=== PATIENT | female | born 1970 | race Caucasian/White ===

== ENCOUNTER 2018-08-25 16:25 | Inpatient (IN) | payer MEDICAID ==
[~2018-08-25] VITALS: Ht 157.5 cm; Wt 48.6 kg
[2018-08-25] MEDS ORDERED: SYNTHROID100 MCG PO (16:52)
[2018-08-25] MEDS ORDERED: ELAVIL25 MG PO (16:53)
[2018-08-25] MEDS ORDERED: NOVOLOG100 UNIT/1 SQ (16:53)
[2018-08-25] MEDS ORDERED: LANTUS SQ (16:55)
[2018-08-25 17:36] LABS: BASOPHILS 0.9 % (0-2); EOSINOPHILS 2.7 % (0-7); HEMATOCRIT 32.8 % (36.0-48.0); HEMOGLOBIN 10.4 g/dL (12-16); IMMATURE GRANULOCYTES 0.4 % (0-5); LYMPHOCYTES 29.6 % (15-50); MCH 26.3 pg (26.0-34.0); MCHC 31.7 g/dL (31.0-37.0); MCV 82.8 fL (80.0-100.0); MEAN PLATELET VOLUME 9.4 fL (7.4-10.4); MONOCYTES 9.1 % (2-11); NEUTROPHILS 57.3 % (40-80); PLATELET COUNT 433 10x3/uL (130-400); RBC 3.96 10x6/uL (4.00-5.40); RDW 16.9 % (11.5-14.5); WBC 9.3 10x3/uL (4.8-10.8)
[2018-08-25 17:52] LABS: ALBUMIN 3.3 g/dL (3.4-5.0); ANION GAP 13.6 mmol/L (8-16); BILIRUBIN - TOTAL 0.28 mg/dL (0.2-1.3); CALCIUM 9.3 mg/dL (8.5-10.1); CARBON DIOXIDE 26.4 mmol/L (21.0-32.0); CREATININE - SERUM 0.9 mg/dL (0.6-1.3); PROTEIN - SERUM 7.6 g/dL (6.4-8.2)
--- NOTE | 2018-08-25 17:54 | NUR ---
LAB CALLED CRITICAL GLUCOSE OF 527 - ER PROVIDER NOTIFIED.
[2018-08-25 18:04] LABS: APPEARANCE CLEAR (CLEAR); BACTERIA FEW /hpf (NONE SEEN); BILIRUBIN NEGATIVE (NEGATIVE); COLOR YELLOW (YELLOW); EPITHELIAL CELLS 0-5 /hpf (0-5); GLUCOSE 1000 mg/dL (NEGATIVE); KETONE NEGATIVE (NEGATIVE); NITRITE NEGATIVE (NEGATIVE); PROTEIN NEGATIVE (NEGATIVE); RED CELLS - URINE NONE SEEN /hpf (0-5); SPECIFIC GRAVITY 1.025 (1.005-1.020); UROBILINOGEN NORMAL (NORMAL); WHITE CELLS - URINE RARE /hpf (0-5); YEAST <1+ /hpf (NONE SEEN)
[2018-08-25 18:48] LABS: KETONE - SERUM NEGATIVE (NEGATIVE)
[2018-08-25 19:14] LABS: THYROID STIMULATING HORMONE 157.03 uIU/mL (0.36-3.74)
[2018-08-25 22:26] VITALS: BP 87/64
[2018-08-26 01:19] VITALS: BP 100/76; BMI 14.6
--- NOTE | 2018-08-26 02:46 | NUR ---
THE PATIENT APPEARS TO BE SLEEPING. CALL LIGHT WITHIN REACH.
[2018-08-26 04:00] VITALS: BP 94/63
--- NOTE | 2018-08-26 07:30 | NUR ---
A/A/OX4. PT INSTRUCTED TO REMAIN NPO FOR ABD US. DENIES ANY PAIN OR DISCOMFORT AND NO REQUESTS VOICED. IV PATENT TO RIGHT WRIST WITN NO REDNESS OR EDEMA. BED IN LOW POSITION WITH SIDERAILS UP X 2 AND CALL LIGHT IN REACH. ASSESSMENT COMPLETED.
[2018-08-26 07:52] VITALS: BP 97/72
--- NOTE | 2018-08-26 10:21 | NUR ---
IV PATENT. CALL LIGHT IN REACH. WILL CONT. PLAN OF CARE.
[2018-08-26 12:46] VITALS: Ht 157.5 cm; Wt 48.6 kg
--- NOTE | 2018-08-26 13:00 | NUR ---
WENT IN PT ROOM AND THERE WAS A SODA AND EMPTY JELLO CONTAINER ON HER BEDSIDE TABLE. STATES SOME ONE BROUGHT IT INTO HER AND SHE THOUGHT IT WAS OKAY TO EAT EVEN THOUGH SHE HAD BEEN INSTRUCTED ON NPO UNTIL AFTER ULTRASOUND AND VERBALIZED THAT SHE UNDERSTOOD. CALLED US DEPT AND TEST HAS BEEN RESCHEDULEF FOR TOMORROW AM. PT INSTRUCTED ON NPO AFTER MN TONIGHT.
[2018-08-26 14:01] VITALS: BP 119/82
--- NOTE | 2018-08-26 15:29 | NUR ---
RATIONALE FOR SCD'S EXPLAINED. REFUSED SCD'S
[2018-08-26 17:03] LABS: INR 1.01 (0.85-1.17); PROTIME 12.8 SECONDS (11.6-15.0)
--- NOTE | 2018-08-26 17:15 | NUR ---
BLOOD SUGAR 427 GAVE [address] CANALES NOTIFIED. ORDER RECEIVED TO REPEAT BLOOD SUGAR IN ONE HOUR.
--- NOTE | 2018-08-26 18:15 | NUR ---
REPEATED BLOOD SUGAR WITH RESULT OF 347. NOTIFIED AND NO NEW ORDERS RECEIVED.
--- NOTE | 2018-08-26 19:49 | NUR ---
RESUMING PATIENT CARE. PATIENT IS ALERT AND ORIENTED. RESTING COMFORTABLY IN BED. RESPIRATIONS ARE EVEN AND UNLABORED. PATIENT EXPRESSED NO NEEDS AT THIS TIME. PATIENT BOARD UPDATED. CALL LIGHT WITHIN REACH. WILL CPOC.
[2018-08-26 20:00] VITALS: BP 125/82
--- NOTE | 2018-08-26 23:47 | NUR ---
DURING HS MED PASS. PATIENT BLOOD SUGAR WAS 67. SHE WAS GIVEN APPLE JUICE. 2330 RECHECKED PATIENT BLOOD SUGAR, D50 GIVEN. NO S/S OF DISTRESS. NO C/O PAIN. CALL LIGHT WITHIN REACH. WILL CPOC.
[2018-08-27] VITALS: BP 109/79
[2018-08-27 04:00] VITALS: BP 95/65
[2018-08-27 05:28] LABS: EOSINOPHILS 3.6 % (0-7); HEMOGLOBIN 9.2 g/dL (12-16); IMMATURE GRANULOCYTES 0.4 % (0-5); LYMPHOCYTES 31.5 % (15-50); MCH 26.1 pg (26.0-34.0); MCHC 31.7 g/dL (31.0-37.0); MCV 82.2 fL (80.0-100.0); MONOCYTES 9.4 % (2-11); NEUTROPHILS 54.1 % (40-80); PLATELET COUNT 393 10x3/uL (130-400); RBC 3.53 10x6/uL (4.00-5.40); RDW 16.9 % (11.5-14.5); WBC 7.9 10x3/uL (4.8-10.8)
[2018-08-27 05:48] LABS: ALKALINE PHOSPHATASE 83 U/L (46-116); BILIRUBIN - DIRECT 0.06 mg/dL (0.00-0.30); BILIRUBIN - INDIRECT 0.25 mg/dL (0.00-1.00); BILIRUBIN - TOTAL 0.31 mg/dL (0.2-1.3); CALCIUM 7.5 mg/dL (8.5-10.1); CARBON DIOXIDE 23.2 mmol/L (21.0-32.0); CHLORIDE - SERUM 103 mmol/L (98-107); LIPASE 340 U/L (73-393); MAGNESIUM - SERUM 1.4 mg/dL (1.8-2.4); SODIUM 136 mmol/L (136-145)
[2018-08-27 06:15] LABS: ALT (SGPT) 105 U/L (10-68); CALC OSMOLALITY 272 mosm/kg (275-300); CREATININE - SERUM 0.6 mg/dL (0.6-1.3); GLUCOSE 158 mg/dL (74-106); UREA NITROGEN 7 mg/dL (7-18); eGFR NON AFRICAN AMERICAN > 90 mL/min (90-120)
[2018-08-27 06:16] LABS: ALBUMIN 2.4 g/dL (3.4-5.0); PROTEIN - SERUM 5.6 g/dL (6.4-8.2)
--- NOTE | 2018-08-27 07:38 | NUR ---
PATIENT IS RESTING QUIETLY AT THIS TIME. DENIES ANY NEEDS. NPO SINCE MIDNIGHT FOR AN ABDOMINAL ULTRASOUND THIS MORNING.
[2018-08-27 08:33] VITALS: BP 90/62
--- NOTE | 2018-08-27 10:23 | NUR ---
PATIENT IS HAVING HER ABDOMENAL ULTRASOUND AT THIS TIME.
[2018-08-27 11:57] VITALS: BP 115/82
--- NOTE | 2018-08-27 14:31 | NUR ---
PATIENT HAD BEEN NPO FOR ULTRASOUND. SHE WAS SUPPOSE TO HAVE A TRAY AND I CALLED [facility] IN [place] AT 1335. SHE STATES THAT SHE WAS SUPPOSE TO HAVE A GLUTEN FREE DIET. THERE STILL IS NO TRAY HERE AT THIS TIME. [facility] CALLED AGAIN FOR IT. PIV INFUSING TO RIGHT WRIST/FA AREA WITHOUT PROBLEM.S
[2018-08-27 16:23] VITALS: BP 120/86
--- NOTE | 2018-08-27 19:33 | NUR ---
PT IN BED DENIES NEEDS AT THIS TIME.
[2018-08-27 21:33] VITALS: BP 114/79
[2018-08-28] VITALS (7 sets, daily range): BP systolic 98–120; BP diastolic 58–73
--- NOTE | 2018-08-28 04:06 | NUR ---
PT RESTING IN BED WITH RESPS EVEN/NONLABORED. NO DISTRESS. MONITOR AND CPOC.
[2018-08-28 06:01] LABS: BASOPHILS 0.9 % (0-2); EOSINOPHILS 3.6 % (0-7); HEMATOCRIT 29.5 % (36.0-48.0); HEMOGLOBIN 9.2 g/dL (12-16); IMMATURE GRANULOCYTES 0.3 % (0-5); LYMPHOCYTES 38.4 % (15-50); MCH 25.8 pg (26.0-34.0); MCHC 31.2 g/dL (31.0-37.0); MCV 82.9 fL (80.0-100.0); MEAN PLATELET VOLUME 9.3 fL (7.4-10.4); MONOCYTES 11.4 % (2-11); NEUTROPHILS 45.4 % (40-80); PLATELET COUNT 434 10x3/uL (130-400); RBC 3.56 10x6/uL (4.00-5.40); RDW 17.1 % (11.5-14.5); WBC 7.8 10x3/uL (4.8-10.8)
[2018-08-28 06:42] LABS: ALBUMIN 2.7 g/dL (3.4-5.0); ALKALINE PHOSPHATASE 85 U/L (46-116); ALT (SGPT) 113 U/L (10-68); BILIRUBIN - TOTAL 0.21 mg/dL (0.2-1.3); CALCIUM 8.6 mg/dL (8.5-10.1); CARBON DIOXIDE 23.4 mmol/L (21.0-32.0); CHLORIDE - SERUM 101 mmol/L (98-107); CREATININE - SERUM 0.7 mg/dL (0.6-1.3); LIPASE 485 U/L (73-393); MAGNESIUM - SERUM 1.4 mg/dL (1.8-2.4); PROTEIN - SERUM 5.8 g/dL (6.4-8.2); SODIUM 134 mmol/L (136-145); UREA NITROGEN 8 mg/dL (7-18); eGFR NON AFRICAN AMERICAN > 90 mL/min (90-120)
[2018-08-28 06:52] LABS: CALC OSMOLALITY 274 mosm/kg (275-300); GLUCOSE 253 mg/dL (74-106)
[2018-08-28 06:56] LABS: % SATURATION 5 % (15-55); IRON 23 ug/dl (35-150); TOTAL IRON BIND CAPACITY 404 ug/dl (260-445); UNSAT IRON BIND CAPACITY 381 ug/dl (150-375)
--- NOTE | 2018-08-28 08:15 | NUR ---
PT RESTING IN BED WITH EYES OPEN CALL LIGHT IN REACH WILL MONITER
--- NOTE | 2018-08-28 14:23 | NUR ---
ALERT AND ORIENTED X4. SINUS RHYTHM ON TELEMETRY. NO SIGNS OF DISTRESS. DIOMEDES TAPIA RESUMES PLAN OF CARE AND SAFETY PRECAUTIONS.
--- NOTE | 2018-08-28 19:17 | NUR ---
REPORT RECEIVED. PT SITTING UP IN BED WITH EYES OPEN, RR EVEN AND UNLABORED. NO S/S OF DISTRESS. BED IN LOW POSITION. SIDE RAILS UP X2. CALL LIGHT IN REACH. WILL CONTINUE TO MONITOR.
--- NOTE | 2018-08-28 20:46 | NUR ---
ADMINISTERED ORDERED ANALGESIC FOR COMPLAINTS OF PAIN IN HEAD, PT STATES PAIN OF A 10 ON A SCALE OF 0-10.
[2018-08-29] VITALS (7 sets, daily range): BP systolic 96–130; BP diastolic 58–78
--- NOTE | 2018-08-29 00:38 | NUR ---
ADMINISTERED ORDERED ANALGESIC FOR COMPLAINTS OF PAIN IN BOTTOM, PT STATES PAIN OF 10 ON A SCALE OF 0-10.
--- NOTE | 2018-08-29 03:34 | NUR ---
PT LYING IN BED WITH EYES CLOSED, RR EVEN AND UNLABORED. NO S/S OF DISTRESS. RIGHT WRIST PIV INFUSING D5LR ORDERED. BED IN LOW POSITION. SIDE RAILS UP X2. CALL LIGHT IN REACH. WILL CTM.
--- NOTE | 2018-08-29 04:03 | NUR ---
PT RESTING IN BED WITH NO DISTRESS. RESPS NONLABORED. MONITOR AND CPOC. CALL LIGHT IN REACH.
--- NOTE | 2018-08-29 04:49 | NUR ---
ADMINISTERED ORDERED ANALGESIC FOR COMPLAINTS OF PAIN IN BOTTOM, PT STATES PAIN IS STILL AT A 10 ON A SCALE OF 0-10.
[2018-08-29 07:52] LABS: EOSINOPHILS 4.9 % (0-7); HEMATOCRIT 29.8 % (36.0-48.0); HEMOGLOBIN 9.2 g/dL (12-16); IMMATURE GRANULOCYTES 0.3 % (0-5); LYMPHOCYTES 39.5 % (15-50); MCH 25.7 pg (26.0-34.0); MCHC 30.9 g/dL (31.0-37.0); MCV 83.2 fL (80.0-100.0); MEAN PLATELET VOLUME 9.3 fL (7.4-10.4); MONOCYTES 9.3 % (2-11); PLATELET COUNT 427 10x3/uL (130-400); RBC 3.58 10x6/uL (4.00-5.40)
[2018-08-29 08:06] LABS: ALBUMIN 2.6 g/dL (3.4-5.0); ALKALINE PHOSPHATASE 79 U/L (46-116); ALT (SGPT) 89 U/L (10-68); BILIRUBIN - TOTAL 0.15 mg/dL (0.2-1.3); CALCIUM 8.1 mg/dL (8.5-10.1); CARBON DIOXIDE 24.6 mmol/L (21.0-32.0); CHLORIDE - SERUM 102 mmol/L (98-107); CREATININE - SERUM 0.7 mg/dL (0.6-1.3); LIPASE 227 U/L (73-393); MAGNESIUM - SERUM 1.3 mg/dL (1.8-2.4); POTASSIUM - SERUM 3.6 mmol/L (3.5-5.1); SODIUM 135 mmol/L (136-145); UREA NITROGEN 9 mg/dL (7-18); eGFR NON AFRICAN AMERICAN > 90 mL/min (90-120)
[2018-08-29 08:08] LABS: CALC OSMOLALITY 271 mosm/kg (275-300); GLUCOSE 158 mg/dL (74-106)
--- NOTE | 2018-08-29 09:07 | NUR ---
RIGHT WRIST 20G IV INFILTRATED. DC'D WITH CATH INTACT.
--- NOTE | 2018-08-29 09:59 | NUR ---
UP IN SHOWER. NO NEEDS INDICTAED AT THIS TIME.
--- NOTE | 2018-08-29 10:32 | NUR ---
PT OUT OF ROOM WALKING AROUND. WILL WAIT TILL PT RETURNS TO ROOM TO PLACE NEW IV.
--- NOTE | 2018-08-29 11:51 | NUR ---
LEFT FA 22G IV INSERTED ON X3 ATTEMPT.
--- NOTE | 2018-08-29 14:34 | NUR ---
Nutrition follow-up: Diet has advanced to ada consistent CHO gluten-free per Dr. Mcpherson PO intake ~75% of last 3 meals Wt: 100# Labs reviewed RDN following.
--- NOTE | 2018-08-30 03:21 | NUR ---
LYING IN BED, RESPIRATIONS EVEN AND UNLABORED. CALL LIGHT IN REACH, WILL CONTINUE WITH PLAN OF CARE.
[2018-08-30 03:55] VITALS: BP 102/73
[2018-08-30 05:48] LABS: EOSINOPHILS 4.1 % (0-7); HEMATOCRIT 25.3 % (36.0-48.0); HEMOGLOBIN 7.9 g/dL (12-16); IMMATURE GRANULOCYTES 0.4 % (0-5); LYMPHOCYTES 30.4 % (15-50); MCH 25.9 pg (26.0-34.0); MCHC 31.2 g/dL (31.0-37.0); MEAN PLATELET VOLUME 9.4 fL (7.4-10.4); MONOCYTES 10.2 % (2-11); NEUTROPHILS 53.9 % (40-80); PLATELET COUNT 407 10x3/uL (130-400); RBC 3.05 10x6/uL (4.00-5.40); RDW 17.3 % (11.5-14.5); WBC 8.1 10x3/uL (4.8-10.8)
[2018-08-30 06:21] LABS: ALBUMIN 2.3 g/dL (3.4-5.0); ANION GAP 11.9 mmol/L (8-16); BILIRUBIN - TOTAL 0.1 mg/dL (0.2-1.3); CALCIUM 7.9 mg/dL (8.5-10.1); CARBON DIOXIDE 25.2 mmol/L (21.0-32.0); MAGNESIUM - SERUM 1.6 mg/dL (1.8-2.4); POTASSIUM - SERUM 4.1 mmol/L (3.5-5.1); PROTEIN - SERUM 5.4 g/dL (6.4-8.2)
[2018-08-30 06:22] LABS: CREATININE - SERUM 0.9 mg/dL (0.6-1.3)
[2018-08-30 08:39] VITALS: BP 100/70
[2018-08-30 09:17] LABS: HEPATITIS C ANTIBODY <0.1 S/CO RAT (0.0-0.9)
--- NOTE | 2018-08-30 09:48 | NUR ---
UP AMBULATING HALLWAY AT THIS TIME. WILL MONITOR.
--- NOTE | 2018-08-30 11:08 | NUR ---
Educate pt on diabetic diet. Recommend pt eat three meals per day with 50gm CHO at each meal. Recommend one PM snack with 15gm CHO. Educate pt on counting carbohydrates with 1 servings of CHO equaling 15gm CHO. Pt has a good understanding of counting carbohydrates. Encouraged pt to always have protein when eating carbohydrates. Provided a diabetic placemat with the plate method and a carbohydrate counting booklet. All questions were answered and pt seemed interested in learning about diabetic diet. Pt reports she has been trying to be more active and encouraged activity to help control BG RD following
[2018-08-30 11:20] LABS: COPPER/CRT RATIO 14 (0-49); CREATININE, UR 1.03 g/L (0.30-3.00)
[2018-08-30 12:22] VITALS: BP 104/69; BP 127/60
--- NOTE | 2018-08-30 15:26 | NUR ---
PT STATES SHE HAS HAD DIARRHE THREE TIMES AND IS WANTING SOEMTHING FOR IT. CALLED AND SPOKE WITH CELESTE CHAKRABORTY AND SHE STATES GET A CDIFF CULTURE AND ONLY IF THAT IS NEGATIVE THEN YOU CAN ORDER IMMDOIUM.
[2018-08-30 17:04] VITALS: BP 115/68; BP 145/64
[2018-08-30 19:00] VITALS: BP 104/73
--- NOTE | 2018-08-30 21:00 | NUR ---
PT REPORTS RECTAL PAIN DUE TO FREQUENT LOOSE STOOLS, REFUSES SUPPOSITORY, BUT REQUESTS HER MORPHINE.
[2018-08-31] VITALS: BP 102/63
--- NOTE | 2018-08-31 01:45 | NUR ---
PAIN IS WELL CONTROLLED BY PAIN MEDICATION. PT STATED SHE WANTS SOME REAL FOOD LIKE FRIED CHICKEN, BUT OTHERWISE WAS WITHOUT NEEDS.
[2018-08-31 04:00] VITALS: BP 95/59
[2018-08-31 05:23] LABS: BASOPHILS 1.2 % (0-2); EOSINOPHILS 3.9 % (0-7); HEMATOCRIT 25.3 % (36.0-48.0); IMMATURE GRANULOCYTES 0.5 % (0-5); LYMPHOCYTES 31.9 % (15-50); MCH 26.1 pg (26.0-34.0); MCHC 31.6 g/dL (31.0-37.0); MCV 82.4 fL (80.0-100.0); MEAN PLATELET VOLUME 9.6 fL (7.4-10.4); NEUTROPHILS 50.5 % (40-80); PLATELET COUNT 426 10x3/uL (130-400); RBC 3.07 10x6/uL (4.00-5.40); RDW 17.4 % (11.5-14.5); WBC 7.7 10x3/uL (4.8-10.8)
[2018-08-31 06:08] LABS: ALBUMIN 2.3 g/dL (3.4-5.0); ANION GAP 9.2 mmol/L (8-16); BILIRUBIN - TOTAL 0.1 mg/dL (0.2-1.3); CALCIUM 8.1 mg/dL (8.5-10.1); CARBON DIOXIDE 27.9 mmol/L (21.0-32.0); CREATININE - SERUM 0.9 mg/dL (0.6-1.3); MAGNESIUM - SERUM 1.7 mg/dL (1.8-2.4); POTASSIUM - SERUM 4.1 mmol/L (3.5-5.1); PROTEIN - SERUM 5.5 g/dL (6.4-8.2)
--- NOTE | 2018-08-31 07:30 | NUR ---
REC'D WALKING IN [address] ALERT AND ORIENTED. RESP EVEN AND UNLABORED WITH NO DISTRESS NOTED. CAN EXPRESS NEEDS AND WANTS. NO C/O NOTED OR VOICED. ASSESSMENT COMPLETED. C/L IN REACH AT BEDSIDE.
[2018-08-31 08:08] VITALS: BP 102/71
[2018-08-31 11:08] VITALS: BP 108/68
--- NOTE | 2018-08-31 15:12 | MORECARE ---
CASE MANAGEMENT DISCHARGE SUMMARY PATIENT: JODEE RUSSO UNIT: [id number] ADM DATE: 08/25/18 AGE: 47 : 74 SEX: F ROOM/BED: D.2133 AUTHOR: JOHANA STRE[address] PHYSICIAN: REFERRING PHYSICIAN: CHRISTEL POLLARD MD DATE OF SERVICE: 08/31/18 Discharge Plan Patient Name: JODEE RUSSO Facility: [facility]:[place] : 1970 Planned Disposition: Home Anticipated Discharge Date: Discharge Date: Expected LOS: Initial Reviewer: [email or web address] Initial Review Date: 08/29/2018 Generated: 08/31/18 4:11 pm DCPIA - Discharge Planning Initial Assessment Updated by [email or web address]: Clifford Avila on 08/31/18 3:08 pm * Is the patient Alert and Oriented? Yes * How many steps to enter\exit or inside your home? * PCP NONE - REFERRED TO DEPT OF HUMAN SERVICES, [facility] * [facility] * Preadmission Environment Home with Family * ADLs Independent * Equipment Glucometer * Other Equipment NO MEDICAL EQUIPMENT PROVIDER PREFERENCE * List name and contact numbers for known caregivers / representatives who currently or will assist patient after discharge: JOSE MEYER, FRIEND, * Verbal permission to speak to the caregivers and representatives has been obtained from the patient. N/A * Community resources currently utilized Other * Please name any agencies selected above. none * Additional services required to return to the preadmission environment? Yes * Can the patient safely return to the preadmission environment? Yes * Has this patient been hospitalized within the prior 30 days at any hospital? No Patient Name: JODEE RUSSO Page [id number] at 1512 All edits/amendments must be made on the electronic document DICTATION DATE: 08/31/181510 PLASTIC TILE LAYER: JUAN A 08/31/181510 RPT#: [id number] DC DATE: STATUS: ADM IN [facility] [address] [place] [address] END OF REPORT
--- NOTE | 2018-08-31 15:22 | MORECARE ---
CASE MANAGEMENT DISCHARGE SUMMARY PATIENT: JODEE RUSSO UNIT: [id number] ADM DATE: 08/25/18 AGE: 47 : 74 SEX: F ROOM/BED: D.2133 AUTHOR: JADDOC PHYSICIAN: REFERRING PHYSICIAN: CHRISTEL POLLARD MD DATE OF SERVICE: 08/31/18 Discharge Plan Patient Name: JODEE RUSSO Facility: [facility]:[place] : 1970 Planned Disposition: Home Anticipated Discharge Date: Discharge Date: Expected LOS: Initial Reviewer: [email or web address] Initial Review Date: 08/29/2018 Generated: 08/31/18 4:22 pm Comments DCP- Discharge Planning Updated by [id number]: Clifford Avila on 08/31/18 2:[address] Patient Name: JODEE RUSSO Admission Status: ER Accout number: [id number] Admission Date: 08-25-2018 : 1970 Admission Diagnosis:NONINFECTIVE GASTROENTERITIS AND COLITIS, UNSPECIFIED Attending: CHRISTEL POLLARD Current LOS: 6 Anticipated DC Date: Planned Disposition: Home Primary Insurance: MEDICAID [place] PENDING LATE ENTRY FROM 08-29-18. Discharge Planning Comments: CM RECEIVED ORDER INDICATING PT NEEDS PRIMARY CARE DOCTOR. CM MET WITH PT IN ROOM TO DISCUSS DISCHARGE PLANNING AND NEEDS. PT REPORTS LIVING AT HOME INDEPENDENTLY WITH HER ADULT MALE FRIEND. PT MOVED TO [place] FOR A "FRESH START" FROM ANOTHER [facility] IN [place]. PT HAS A GLUCOMETER BUT DOES NOT HAVE INSULIN TO CONTROL HER DIABETES. PT REPORTS LAST INSULIN SHE OBTAINED WAS OVER $200 PER VIA FOR NOVALOG. PT HAS NO PRESCRIPTION OR HEALTHCARE INSURANCE STATING SHE HAD STATE INSURANCE, BUT COULD NOT HOLD A JOB DUE TO ILLNESS WHICH MAKES HER INELIGIBLE FOR INSURANCE FOR FAILING TO MEET JOB REQUIREMENTS. PT DID NOT FILE FOR MEDICAID ON HER OWN AND THINKS THE [facility] DID IT FOR HER. PT HAS NO OUTSIDE SERVICES ASSISTING IN THE HOME. CM DISCUSSED AVAILABILITY OF HOME HEALTH, REHAB SERVICES AND MEDICAL EQUIPMENT. PT DENIES DISCHARGE NEEDS OTHER THAN NEEDING INSURANCE, A DOCTOR AND ALL OF HER MEDICATIONS PROVIDED TO HER AT DISCHARGE. PT INSISTS THAT SHE HAS NO FRIENDS OR FAMILY THAT CAN OR WILL ASSIST WITH HER MEDICATIONS. PT IS NOT A MEMBER OF ANY TAOIST OR SOCIAL ORGANIZATION THAT WILL ASSIST WITH MEDICATIONS. 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 PT HAD PLANNED ON CHECKING ON HER PRIOR INSURANCE TO SEE IF THEY WOULD TAKE HER ONCE SHE HAS PROOF OF WORK REQUIRED BY LAW. PT REPORTS HER FRIEND WHOM SHE LIVES WITH, WILL PICK HER UP FOR DISCHARGE HOME. CM PROVIDED REFERRALS TO [employer] TO APPLY FOR INSURANCE IF SHE CAN MEET THE WORK REQUIREMENT; CM PROVIDED PT WITH PUBLIC LIBRARY LOCATION AND DISCUSSED HOW TO OBTAIN A LIBRARY CARD AND USE FREE PUBLIC INTERNET ACCESS PT REPORTS HAVING NO INTERNET ACCESS. CM PROVIDED CONTACT AND LOCATION INFORMATION FOR DEPARTMENT OF HUMAN SERVICES OF [facility] TO CHECK ON HER MEDICAID APPLICATION PROCESS AFTER HOSPITAL DISCHARGE. CM PROVIDED PT WITH [facility] INFORMATION TO CALL ADN SCHEDULE APPOINTMENT WHEN PT GETS INSURANCE TO MEET FOR PRIMARY CARE DOCTOR CONSIDERATION. CM PROVIDED PT WITH CONTACT AND LOCATION INFORMATION TO [facility] AND EDUCATED PT ON THE VERY LIMITED RESOURCES AVAILABLE FOR EMERGENCY ASSISTANCE FOR MEDICATIONS. PT REPORTS UNDERSTANDING OF HOW TO SEEK ASSISTANCE IN [facility] CM TO EVALUATE PT FOR MEDICATION ASSISTANCE AT DISCHARGE, SPECIFICALLY INSULIN AND ANTIBIOTICS, IF NEEDED. Rehabilitation Engineer: Clifford Avila DCPIA - Discharge Planning Initial Assessment Updated by [id number]: Clifford Avila on 08/31/18 3:08 pm * Is the patient Alert and Oriented? Yes * How many steps to enter\\exit or inside your home? * PCP NONE - REFERRED TO DE[facility] OF HUMAN SERVICES, [facility] * [facility] * Preadmission Environment Home with Family * ADLs Independent * Equipment Glucometer * Other Equipment NO MEDICAL EQUIPMENT PROVIDER PREFERENCE * List name and contact numbers for known caregivers / representatives who currently or will assist patient after discharge: JOSE MEYER, FRIEND, * Verbal permission to speak to the caregivers and representatives has been obtained from the patient. N/A * Community resources currently utilized Other * Please name any agencies selected above. none * Additional services required to return to the preadmission environment? Yes * Can the patient safely return to the preadmission environment? Yes * Has this patient been hospitalized within the prior 30 days at any hospital? No Last DP export: 08/31/18 2:12 p Patient Name: JODEE RUSSO Page [id number] at 1522 All edits/amendments must be made on the electronic document DICTATION DATE: 08/31/18 152 SAIL FINISHER HAND: JUAN A 08/31/181521 RPT#: [id number] DC DATE: STATUS: ADM IN [facility] [address] [place] [address] END OF REPORT
[2018-08-31 15:37] VITALS: BP 103/66
--- NOTE | 2018-08-31 20:15 | NUR ---
RESUMING CARE. PT IS ALERT LAYING IN THE BED WITH NO C/O VOICED AT THIS TIME. PT HAS A IV IN THE RIGHT FOREARM. BED IN THE LOWEST POSITION WITH CALL LIGHT IN REACH. WILL CONTINUE TO MONITOR PT AND FOLLOW PLAN OF CARE.
[2018-08-31 21:09] VITALS: BP 115/89
--- NOTE | 2018-08-31 23:38 | NUR ---
LYING IN BED WITH CALL LIGHT IN REACH. WILL CONTINUE TO MONITOR.
[2018-09-01] VITALS: BP 93/65
[2018-09-01 04:00] VITALS: BP 92/61
--- NOTE | 2018-09-01 04:53 | NUR ---
PT LAYING IN BED WITH EYES CLOSED RESTING COMFORTABLY. BED IN LOW POSITION WITH CALL LIGHT IN REACH. WILL CONTINUE TO MONITOR PT AND FOLLOW PLAN OF CARE.
[2018-09-01 05:29] LABS: EOSINOPHILS 4.1 % (0-7); HEMATOCRIT 26.4 % (36.0-48.0); HEMOGLOBIN 8.4 g/dL (12-16); IMMATURE GRANULOCYTES 0.5 % (0-5); LYMPHOCYTES 27.9 % (15-50); MCH 26.3 pg (26.0-34.0); MCHC 31.8 g/dL (31.0-37.0); MCV 82.5 fL (80.0-100.0); MEAN PLATELET VOLUME 9.5 fL (7.4-10.4); MONOCYTES 16.5 % (2-11); PLATELET COUNT 464 10x3/uL (130-400); RDW 17.6 % (11.5-14.5); WBC 7.3 10x3/uL (4.8-10.8)
[2018-09-01 05:50] LABS: CALC OSMOLALITY 281 mosm/kg (275-300); CALCIUM 8.2 mg/dL (8.5-10.1); CHLORIDE - SERUM 99 mmol/L (98-107); CREATININE - SERUM 0.8 mg/dL (0.6-1.3); GLUCOSE 239 mg/dL (74-106); LIPASE 360 U/L (73-393); POTASSIUM - SERUM 4.6 mmol/L (3.5-5.1); SODIUM 137 mmol/L (136-145); UREA NITROGEN 12 mg/dL (7-18); eGFR NON AFRICAN AMERICAN 82 mL/min (90-120)
--- NOTE | 2018-09-01 07:30 | NUR ---
RECEIVED A/A/OX4. IN CHEERFUL MOOD AND STATES SHE IS HOPING TO GO HOME TODAY. HAS BEEN UP AMBULATORY IN [place] WITH STEADY GAIT. STATES SHE HAD LOOSE DIARRHEA STOOL EARLIER THIS A.M. NO REQUESTS VOICED AT THIS TIME. BED IN LOW POSITION, SIDERAILS UP X 2 AND CALL LIGHT IN REACH. IV PATENT TO RIGHT FA WITH NO REDNESS OR EDEMA NOTED.
[2018-09-01 07:49] VITALS: BP 96/64
--- NOTE | 2018-09-01 10:21 | NUR ---
VISITING WITH FAMILY. RESP EVEN,NONLABORED.
[2018-09-01 11:00] VITALS: BP 106/64
--- NOTE | 2018-09-01 12:36 | NUR ---
PT STATES SHE CONTINUES TO HAVE WATERY DIARRHEA. IMODIUM 2 MG GIVEN PO. REFUSED NOON MEAL.
[2018-09-01] MEDS ORDERED: ZITHROMAX250 MG PO (13:03)
[2018-09-01] MEDS ORDERED: Vancomycin HCl PO (13:04)
[2018-09-01] MEDS ORDERED: VANCOCIN HCL250 MG PO (13:05)
[2018-09-01] MEDS ORDERED: FLAGYL500 MG PO (13:06)
[2018-09-01] MEDS ORDERED: PROTONIX40 MG PO (13:06)
--- NOTE | 2018-09-01 16:51 | MORECARE ---
CASE MANAGEMENT DISCHARGE SUMMARY PATIENT: JODEE RUSSO UNIT: [id number] ADM DATE: 08/25/18 AGE: 47 : 74 SEX: F ROOM/BED: D.0353 AUTHOR: JOHANA STREET PHYSICIAN: REFERRING PHYSICIAN: CHRISTEL POLLARD MD DATE OF SERVICE: 09/01/18 Discharge Plan Patient Name: JODEE RUSSO Facility: [facility]:[place] : 1970 Planned Disposition: Home Anticipated Discharge Date: 09/01/18 Discharge Date: Expected LOS: 7 Initial Reviewer: [email or web address] Initial Review Date: 08/29/2018 Generated: 09/01/18 5:51 pm Comments DCP- Discharge Planning Updated by [id number]: Clifford Avila on 08/31/18 2:[address] Patient Name: JODEE RUSSO Admission Status: ER Accout number: [id number] Admission Date: 08-25-2018 : 1970 Admission Diagnosis:NONINFECTIVE GASTROENTERITIS AND COLITIS, UNSPECIFIED Attending: CHRISTEL POLLARD Current LOS: 6 Anticipated DC Date: Planned Disposition: Home Primary Insurance: MEDICAID [place] PENDING LATE ENTRY FROM 08-29-18. Discharge Planning Comments: CM RECEIVED ORDER INDICATING PT NEEDS PRIMARY CARE DOCTOR. CM MET WITH PT IN ROOM TO DISCUSS DISCHARGE PLANNING AND NEEDS. PT REPORTS LIVING AT HOME INDEPENDENTLY WITH HER ADULT MALE FRIEND. PT MOVED TO [place] FOR A "FRESH START" FROM ANOTHER [facility] IN [place]. PT HAS A GLUCOMETER BUT DOES NOT HAVE INSULIN TO CONTROL HER DIABETES. PT REPORTS LAST INSULIN SHE OBTAINED WAS OVER $200 PER VIA FOR NOVALOG. PT HAS NO PRESCRIPTION OR HEALTHCARE INSURANCE STATING SHE HAD STATE INSURANCE, BUT COULD NOT HOLD A JOB DUE TO ILLNESS WHICH MAKES HER INELIGIBLE FOR INSURANCE FOR FAILING TO MEET JOB REQUIREMENTS. PT DID NOT FILE FOR MEDICAID ON HER OWN AND THINKS THE [facility] DID IT FOR HER. PT HAS NO OUTSIDE SERVICES ASSISTING IN THE HOME. CM DISCUSSED AVAILABILITY OF HOME HEALTH, REHAB SERVICES AND MEDICAL EQUIPMENT. PT DENIES DISCHARGE NEEDS OTHER THAN NEEDING INSURANCE, A DOCTOR AND ALL OF HER MEDICATIONS PROVIDED TO HER AT DISCHARGE. PT INSISTS THAT SHE HAS NO FRIENDS OR FAMILY THAT CAN OR WILL ASSIST WITH HER MEDICATIONS. PT IS NOT A MEMBER OF ANY SCIENTOLOGY OR SOCIAL ORGANIZATION THAT WILL ASSIST WITH MEDICATIONS. 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 PT HAD PLANNED ON CHECKING ON HER PRIOR INSURANCE TO SEE IF THEY WOULD TAKE HER ONCE SHE HAS PROOF OF WORK REQUIRED BY LAW. PT REPORTS HER FRIEND WHOM SHE LIVES WITH, WILL PICK HER UP FOR DISCHARGE HOME. CM PROVIDED REFERRALS TO [employer] TO APPLY FOR INSURANCE IF SHE CAN MEET THE WORK REQUIREMENT; CM PROVIDED PT WITH PUBLIC LIBRARY LOCATION AND DISCUSSED HOW TO OBTAIN A LIBRARY CARD AND USE FREE PUBLIC INTERNET ACCESS PT REPORTS HAVING NO INTERNET ACCESS. CM PROVIDED CONTACT AND LOCATION INFORMATION FOR DEPARTMENT OF HUMAN SERVICES OF [facility] TO CHECK ON HER MEDICAID APPLICATION PROCESS AFTER HOSPITAL DISCHARGE. CM PROVIDED PT WITH [facility] INFORMATION TO CALL ADN SCHEDULE APPOINTMENT WHEN PT GETS INSURANCE TO MEET FOR PRIMARY CARE DOCTOR CONSIDERATION. CM PROVIDED PT WITH CONTACT AND LOCATION INFORMATION TO [facility] AND EDUCATED PT ON THE VERY LIMITED RESOURCES AVAILABLE FOR EMERGENCY ASSISTANCE FOR MEDICATIONS. PT REPORTS UNDERSTANDING OF HOW TO SEEK ASSISTANCE IN [facility]. CM TO EVALUATE PT FOR MEDICATION ASSISTANCE AT DISCHARGE, SPECIFICALLY INSULIN AND ANTIBIOTICS, IF NEEDED. Switch Operators Supervisor: Clifford Avila DCPIA - Discharge Planning Initial Assessment Updated by [id number]: Clifford Avila on 08/31/18 3:08 pm * Is the patient Alert and Oriented? Yes * How many steps to enter\\exit or inside your home? * PCP NONE - REFERRED TO DEPT OF HUMAN SERVICES, [facility] * Pharmacy [facility] * Preadmission Environment Home with Family * ADLs Independent * Equipment Glucometer * Other Equipment NO MEDICAL EQUIPMENT PROVIDER PREFERENCE * List name and contact numbers for known caregivers / representatives who currently or will assist patient after discharge: JOSE MITCH, FRIEND, * Verbal permission to speak to the caregivers and representatives has been obtained from the patient. N/A * Community resources currently utilized Other * Please name any agencies selected above. none * Additional services required to return to the preadmission environment? Yes * Can the patient safely return to the preadmission environment? Yes * Has this patient been hospitalized within the prior 30 days at any hospital? No Last DP export: 08/31/18 2:22 p Patient Name: JODEE RUSSO Page [id number] at 1651 All edits/amendments must be made on the electronic document DICTATION DATE: 09/01/181650 COFFEE WEIGHER: JUAN A 09/01/181650 RPT#: [id number] DC DATE: STATUS: ADM IN [facility] [address] [place] [address] END OF REPORT
[2018-09-01 17:02] VITALS: BP 115/71
--- NOTE | 2018-09-01 17:07 | MORECARE ---
CASE MANAGEMENT DISCHARGE SUMMARY PATIENT: JODEE RUSSO UNIT: [id number] ADM DATE: 08/25/18 AGE: 47 : 74 SEX: F ROOM/BED: D.2133 AUTHOR: JAD,DOC PHYSICIAN: REFERRING PHYSICIAN: CHRISTEL POLLARD MD DATE OF SERVICE: 09/01/18 Discharge Plan Patient Name: JODEE RUSSO Facility: [facility]:[place] : 1970 Planned Disposition: Home Anticipated Discharge Date: 09/01/18 Discharge Date: Expected LOS: 7 Initial Reviewer: [id number] Initial Review Date: 08/29/2018 Generated: 09/01/18 6:07 pm Comments DCP- Discharge Planning Updated by [id number]: Clifford Avila on 09/01/18 4:[address] Patient Name: JODEE RUSSO Encounter No: [id number] : 1970 Primary Insurance: MEDICAID [place] PENDING Anticipated DC Date: 09-01-2018 Planned Disposition: Home DCP follow-up note: CM RECEIVED DISCHARGE ORDER FOR MEDICATION ASSISTANCE. CM CALLED AND SPOKE TO KWABENA AT [facility], RECEIVED QUOTES FOR MEDICATIONS: ZITHROMAX, 500MG, #3, $16.83 / FLAGYL, 500MG, #12, $14.43 / VANCOMYCIN, 250MG, #20, $160.00. [facility], OBTAINED PRICES: ZITHROMAX, 500MG, #3, $17.35/ FLAGYL, 500MG, #12, $16.50 VANCOMYCIN, 250MG, #20, $NOT IN STOCK. MELVIN SPOKE TO DEBRA IN Sq[place], PT HAS ACTIVE MEDICAID, [id number] AND HAS THREE SLOTS. DEBRA CANNOT TELL CM IF PT HAS PRIMARY DOCTOR OR HOW TO INCREASE MEDICATION "SLOTS". AFTER SPEAKING TO CM LAND APPRAISER, CM CALLED DEPARTMENT OF HUMAN SERVICES, , SPOKE TO KATE OF MEDICAID, BOTH INFORMED CM THAT PT HAS MEDICAID IN [facility], NO PRIMARY CARE DOCTOR AND THE PRIMARY CARE DOCTOR HAS TO SUBMIT FORM TO INCREASE MEDICATION SLOT'S TO MAXIMUM OF 6. PT WILL NEED TO COME TO [facility] OFFICE OR ONLINE TO GET ASSISTANCE IF NEEDED, IN FINDING MEDICAID PRIMARY CARE. CM EXPLAINED THAT PT LIVES IN [facility]. [facility] CHANGED THE COUNTY ON PT'S MEDICAID THAT MADE IT INACTIVE UNTIL THE MORNING WHEN THE "SYSTEM WILL BE THROUGH UPDATING" AND PT SHOULD BE ABLE TO FILL 3 MEDICATIONS. CM INFORMED CM LAND APPRAISER NEISHA WHO SPOKE TO PHARMACY AND AUTHORIZED ONE EACH OF PT'S TWO TYPES OF INSULIN, , ONE FLAGYL AND TWO VANCOMYCIN FOR PT TO DISCHARGE HOME. CM SPOKE TO PT IN ROOM, DISCUSSED DISCHARGE ARRANGEMENTS. PT IS THANKFUL FOR ASSISTANCE AND WILL FOLLOW UP WITH [facility] AND FILL THREE ANTIBIOTICS TOMORROW. PT REPORTS HER FRIEND WILL PICK TONIGHT FOR DISCHARGE HOME. PT DENIES FURHTER NEEDS. SR. STRATEGIC SOURCING MANAGER NURSE NOTIFIED. Clifford Avila, CASE MANAGEMENT DCP- Discharge Planning Updated by [id number]: Clifford Avila on 08/31/18 2:[address] Patient Name: JODEE RUSSO Admission Status: ER Accout number: [id number] Admission Date: 08-25-2018 : 1970 Admission Diagnosis:NONINFECTIVE GASTROENTERITIS AND COLITIS, UNSPECIFIED Attending: CHRISTEL POLLARD Current LOS: 6 Anticipated DC Date: Planned Disposition: Home Primary Insurance: MEDICAID [place] PEND[place] LATE ENTRY FROM 08-29-18. Discharge Planning Comments: CM RECEIVED ORDER INDICATING PT NEEDS PRIMARY CARE DOCTOR. CM MET WITH PT IN ROOM TO DISCUSS DISCHARGE PLANNING AND NEEDS. PT REPORTS LIVING AT HOME INDEPENDENTLY WITH HER ADULT MALE FRIEND. PT MOVED TO [place] FOR A "FRESH START" FROM ANOTHER [facility] IN [place]. PT HAS A GLUCOMETER BUT DOES NOT HAVE INSULIN TO CONTROL HER DIABETES. PT REPORTS LAST INSULIN SHE OBTAINED WAS OVER $200 PER VIA FOR NOVALOG. PT HAS NO PRESCRIPTION OR HEALTHCARE INSURANCE STATING SHE HAD STATE INSURANCE, BUT COULD NOT HOLD A JOB DUE TO ILLNESS WHICH MAKES HER INELIGIBLE FOR INSURANCE FOR FAILING TO MEET JOB REQUIREMENTS. PT DID NOT FILE FOR MEDICAID ON HER OWN AND THINKS THE [facility] DID IT FOR HER. PT HAS NO OUTSIDE SERVICES ASSISTING IN THE HOME. CM DISCUSSED AVAILABILITY OF HOME HEALTH, REHAB SERVICES AND MEDICAL EQUIPMENT. PT DENIES DISCHARGE NEEDS OTHER THAN NEEDING INSURANCE, A DOCTOR AND ALL OF HER MEDICATIONS PROVIDED TO HER AT DISCHARGE. PT INSISTS THAT SHE HAS NO FRIENDS OR FAMILY THAT CAN OR WILL ASSIST WITH HER MEDICATIONS. PT IS NOT A MEMBER OF ANY PENTECOSTALISM OR SOCIAL ORGANIZATION THAT WILL ASSIST WITH MEDICATIONS. PT REPORTS HAVING NO MONEY TO PAY FOR HER MEDICATIONS BUT DOES HAVE A DEFENSE ANALYST JOB ARRANGED FOR WHEN SHE GETS OUT OF THE HOSPITAL. PT HAD PLANNED ON CHECKING ON HER PRIOR INSURANCE TO SEE IF THEY WOULD TAKE HER ONCE SHE HAS PROOF OF WORK REQUIRED BY LAW. PT REPORTS HER FRIEND WHOM SHE LIVES WITH, WILL PICK HER UP FOR DISCHARGE HOME. CM PROVIDED REFERRALS TO [employer] TO APPLY FOR INSURANCE IF SHE CAN MEET THE WORK REQUIREMENT; CM PROVIDED PT WITH PUBLIC LIBRARY LOCATION AND DISCUSSED HOW TO OBTAIN A LIBRARY CARD AND USE FREE PUBLIC INTERNET ACCESS PT REPORTS HAVING NO INTERNET ACCESS. CM PROVIDED CONTACT AND LOCATION INFORMATION FOR DE[facility]MENT OF HUMAN SERVICES OF [facility] TO CHECK ON HER MEDICAID APPLICATION PROCESS AFTER HOSPITAL DISCHARGE. CM PROVIDED PT WITH [facility] INFORMATION TO CALL ADN SCHEDULE APPOINTMENT WHEN PT GETS INSURANCE TO MEET FOR PRIMARY CARE DOCTOR CONSIDERATION. CM PROVIDED PT WITH CONTACT AND LOCATION INFORMATION TO [facility] AND EDUCATED PT ON THE VERY LIMITED RESOURCES AVAILABLE FOR EMERGENCY ASSISTANCE FOR MEDICATIONS. PT REPORTS UNDERSTANDING OF HOW TO SEEK ASSISTANCE IN [facility]. CM TO EVALUATE PT FOR MEDICATION ASSISTANCE AT DISCHARGE, SPECIFICALLY INSULIN AND ANTIBIOTICS, IF NEEDED. Broomcorn Grader: Cliffrod Avila DCPIA - Discharge Planning Initial Assessment Updated by [email or web address]: Clifford Avila on 08/31/18 3:08 pm * Is the patient Alert and Oriented? Yes * How many steps to enter\\exit or inside your home? * PCP NONE - REFERRED TO DEPT OF HUMAN SERVICES, [facility] AND [facility] * [facility]acy [facility] * Preadmission Environment Home with Family * ADLs Independent * Equipment Glucometer * Other Equipment NO MEDICAL EQUIPMENT PROVIDER PREFERENCE * List name and contact numbers for known caregivers / representatives who currently or will assist patient after discharge: JOSE MEYER, FRIEND, * Verbal permission to speak to the caregivers and representatives has been obtained from the patient. N/A * Community resources currently utilized Other * Please name any agencies selected above. none * Additional services required to return to the preadmission environment? Yes * Can the patient safely return to the preadmission environment? Yes * Has this patient been hospitalized within the prior 30 days at any hospital? No Last DP export: 09/01/18 3:51 p Patient Name: JODEE RUSSO Page [id number] at [id number] All edits/amendments must be made on the electronic document DICTATION DATE: 09/01/181706 MANAGER URGENT CARE: JUAN A 09/01/181706 RPT#: [id number] DC DATE: STATUS: ADM IN [facility] [address] [place] [address] END OF REPORT
--- NOTE | 2018-09-01 17:15 | NUR ---
DISHCARGE ORDERS REVEIWED WITH PT WITH NO QUESTIONS AND VERBALIZES UNDERSTANDING. PROVIDED WITH INSULIN SYRINGES AND LANTUS PEN NEEDLES FOR TONIGHT UNTIL SHE CAN GET PRES FILLED TOMORROW. ALSO PROVIDED WITH VANCOMYCIN CAPSULES X 2 AND FLAGYL X1. SALINE LOCK REMOVED WITH TIP INTACT. LEFT FLOOR WITH ALL PERSONAL BELONGINGS VIA W/C AND LEFT FACILITY VIA PRIVATE VEHICLE WITH A FRIEND.
== END 2018-09-01 17:00 | disposition home or self-care (01) | DRG 371 ==
LOC: D.ER 16:25 → D.M2 21:05 → D.EDHOLD 21:05 → D.M2 22:34
PROVIDERS: Family Medicine; Internal Medicine Gastroenterology; Internal Medicine Nephrology; ADMIT Emergency Medicine
DX: A04.72 Enterocolitis due to Clostridium difficile, not specified as recurrent (principal); K85.90 Acute pancreatitis without necrosis or infection, unspecified; E11.65 Type 2 diabetes mellitus with hyperglycemia; F17.210 Nicotine dependence, cigarettes, uncomplicated; E03.9 Hypothyroidism, unspecified; F10.10 Alcohol abuse, uncomplicated